=== PATIENT | male | born 1950 | race Caucasian/White ===

== ENCOUNTER 2017-02-14 10:45 | Inpatient (IN) | payer MEDICARE, OTHER ==
[~2017-02-14] VITALS: Ht 177.8 cm; Wt 106.0 kg
[~2017-02-14 10:45] MED LIST: ACYC-114 PO; AMLO10TA2 PO; ENAL20TA PO; LOVA40TA2 PO; METF500T4 PO; OMEG-14 PO
[2017-02-14] MEDS ORDERED: ONDANSETRON 2MG/ML, 2ML IVPush ONE (11:30)
[2017-02-14] MEDS ORDERED: SODIUM CHLORIDE FLUSH 10ML SYR IVF ONE (11:30)
[2017-02-14] MEDS ORDERED: SODIUM CHLORIDE 0.9% 1,000ML IVBOLUS ONE (11:30)
[2017-02-14] MEDS ORDERED: ACETAMINOPHEN 325 MG TABLET PO ONE (12:00)
[2017-02-14] MEDS ORDERED: MORPHINE SULFATE 4 MG/ML, 1ML ONE (12:30)
[2017-02-14] MEDS ORDERED: ONDANSETRON 2MG/ML, 2ML ONE (12:31)
[2017-02-14] MEDS ORDERED: ACETAMINOPHEN 325 MG TABLET ONE (12:31)
[2017-02-14] MEDS: MORPHINE SULFATE 4 MG/ML, 1ML IVPush PRN ×2 (12:33→17:41)
[2017-02-14 13:00] LABS: ASPARTATE AMINO TRANSFERASE 29 U/L (15-37); BLOOD UREA NITROGEN 14 mg/dL (7-18); HEMATOCRIT 42.2 % (39.2-51.8); HEMOGLOBIN 14.4 g/dL (13.7-18.0); WHITE BLOOD COUNT 10.4 x10^3/uL (3.4-10)
[2017-02-14] MEDS ORDERED: CEFOTETAN PMX 2GM/50ML 50 ML IV ONE (14:00)
[2017-02-14 17:18] VITALS: BP 103/69
[2017-02-14] MEDS ORDERED: FENTANYL PF 100 MCG/2ML ONE ×6 (17:50→21:48)
[2017-02-14] MEDS ORDERED: MIDAZOLAM 1 MG/ML, 2ML ONE (17:50)
[2017-02-14] MEDS ORDERED: morphine SULFATE 10 MG/ML, 1ML IVPush PRN (18:00)
[2017-02-14] MEDS ORDERED: BUPIVACAINE/PF-EPI 0.5% 1:200K ONE (18:14)
[2017-02-14] MEDS ORDERED: CEFOTETAN 1 GM ONE (19:15)
[2017-02-14] MEDS ORDERED: LABETALOL 5MG/ML 40ML VIAL ONE (19:15)
[2017-02-14] MEDS ORDERED: PROPOFOL 10 MG/ML, 20ML ONE (19:15)
[2017-02-14] MEDS ORDERED: GLYCOPYRROLATE 0.2MG/1ML, 5ML ONE (19:15)
[2017-02-14] MEDS ORDERED: ROCURONIUM 10 MG/ML ONE ×2 (19:15)
[2017-02-14] MEDS ORDERED: NEOSTIGMINE 1 MG/ML, 10ML ONE (19:15)
[2017-02-14] MEDS ORDERED: OXYcodone 5 MG/5 ML ORAL.SOL UDC PO PRN (19:30)
[2017-02-14] MEDS ORDERED: ONDANSETRON 2MG/ML, 2ML IVPush PRN (19:30)
[2017-02-14] MEDS ORDERED: LABETALOL 5MG/ML, 20ML IV PRN (19:30)
[2017-02-14] MEDS ORDERED: hydrALAzine 20 MG/ML, 1ML IV PRN ×2 (19:30→23:45)
[2017-02-14] MEDS ORDERED: PROMETHAZINE 25 MG/ML, 1ML IV PRN (19:30)
[2017-02-14] MEDS ORDERED: BUPIVACAINE/PF-EPI 0.5% 1:200K IM ONE (19:44)
[2017-02-14] MEDS: FENTANYL PF 100 MCG/2ML IV PRN ×5 (20:33→21:49)
[2017-02-14] MEDS ORDERED: HYDROmorphone 1 MG/ML, 1ML ONE (20:33)
[2017-02-14] MEDS: HYDROmorphone 1 MG/ML, 1ML IV PRN ×4 (20:38→21:15)
[2017-02-14] MEDS ORDERED: LORazepam 2 MG/ML, 1ML ONE (21:55)
[2017-02-14] MEDS ORDERED: LORazepam 2 MG/ML, 1ML IVPush ONE (22:00)
[2017-02-14] MEDS ORDERED: MEPERIDINE/PF 25MG/0.5ML ONE (22:25)
[2017-02-14] MEDS ORDERED: MEPERIDINE/PF 25MG/0.5ML IVPush PRN (22:30)
[2017-02-14] MEDS ORDERED: ACETAMINOPHEN 650 MG SUPP PR PRN (23:45)
[2017-02-14] MEDS ORDERED: ONDANSETRON 2MG/ML, 2ML IV PRN (23:45)
[2017-02-14] MEDS ORDERED: HYDROcodone/APAP 5/325 TABLET PO PRN (23:45)
[2017-02-14] MEDS ORDERED: DIPHENHYDRAMINE 25 MG CAPSULE PO PRN (23:45)
[2017-02-14] MEDS ORDERED: DIPHENHYDRAMINE 50 MG/ML, 1ML IV PRN (23:45)
[2017-02-14] MEDS: LACTATED RINGERS 1,000 ML IV SCH (23:45)
[2017-02-15 00:06] VITALS: BP 126/71
[2017-02-15] MEDS: ACETAMINOPHEN 325 MG TABLET PO PRN (00:39)
[2017-02-15] MEDS: ENOXAPARIN 40 MG/0.4 ML SQ SCH (02:22)
[2017-02-15 03:00] VITALS: BP 121/75
[2017-02-15 05:22] LABS: HEMATOCRIT 39.9 % (39.2-51.8); HEMOGLOBIN 13.5 g/dL (13.7-18.0); WHITE BLOOD COUNT 7.1 x10^3/uL (3.4-10)
[2017-02-15 05:31] LABS: ASPARTATE AMINO TRANSFERASE 70 U/L (15-37); BLOOD UREA NITROGEN 15 mg/dL (7-18)
[2017-02-15] MEDS: CEFOTETAN PMX 2GM/50ML 50 ML IVPB SCH ×2 (05:51→17:32)
[2017-02-15 07:33] VITALS: BP 118/78
[2017-02-15] MEDS: LACTATED RINGERS 1,000 ML IV SCH ×2 (09:18→20:58)
[2017-02-15 13:58] VITALS: BP 157/86
[2017-02-15] MEDS: morphine SULFATE 10 MG/ML, 1ML IV PRN (14:44)
[2017-02-15] MEDS: LACTULOSE 20 GM/30 ML UDC PO PRN (15:39)
[2017-02-15 18:29] VITALS: BP 144/86
[2017-02-15] MEDS: DOCUSATE 100 MG CAPSULE PO SCH (20:58)
[2017-02-16 00:15] VITALS: BP 146/81
[2017-02-16] MEDS: ENOXAPARIN 40 MG/0.4 ML SQ SCH (02:15)
[2017-02-16] MEDS: ACETAMINOPHEN 325 MG TABLET PO PRN (02:33)
[2017-02-16] MEDS: LACTATED RINGERS 1,000 ML IV SCH ×2 (04:16→10:59)
[2017-02-16 06:34] VITALS: BP 141/88
[2017-02-16] MEDS: DOCUSATE 100 MG CAPSULE PO SCH (08:27)
[2017-02-16] MEDS: LACTULOSE 20 GM/30 ML UDC PO PRN (11:29)
[2017-02-16 14:07] VITALS: BP 131/73
[2017-02-16] MEDS: morphine SULFATE 10 MG/ML, 1ML IV PRN (14:52)
[2017-02-16 16:29] VITALS: BP 138/83
== END 2017-02-16 17:10 | disposition home or self-care (01) | DRG 419 ==
LOC: ED 13:32 → EDIP 13:33 → ED 13:42 → 4NOR 16:18
PROVIDERS: ADMIT Surgery; ATTEND Surgery
PROC: 0FT44ZZ Resection of Gallbladder, Percutaneous Endoscopic Approach (ICD-10-PCS; principal; 2017-02-14 19:00)
DX: K80.00 Calculus of gallbladder with acute cholecystitis without obstruction (principal); I11.9 Hypertensive heart disease without heart failure; K66.0 Peritoneal adhesions (postprocedural) (postinfection); E78.00 Pure hypercholesterolemia, unspecified; K82.8 Other specified diseases of gallbladder; Z88.1 Allergy status to other antibiotic agents
CPT/HCPCS: 36415; 74022; 76700; 80053; 81001; 82962; 83605; 83690; 85025; 85610; 85730; 87040; 87086; 88304; 93005; 96361; 96374; J1170; J1650; J2250; J2405; J2704; J2710; J3010; J3490; J2060; J2270; J7030; J7120; S0074